=== PATIENT | male | born 1945 | race Two or more races ===

== ENCOUNTER 2023-12-27 20:15 | Emergency (ER) | payer MEDICARE, BC, SELFPAY ==
[2023-12-27 20:26] VITALS: PULSE 76; RESP 18; O2SAT 99; BMI 27.3
[2023-12-27 20:44] VITALS: BP 123/64; PULSE 72; RESP 17; TEMP 36.7; O2SAT 97
--- NOTE | 2023-12-27 21:00 | XR_ITS ---
Examination: CT brain head without contrast. 2-D sagittal coronal reconstructions Date and time of exam:December 27, 2023 2124 hrs. Indications: Patient fell today with injury to the head, head pain CTDI: vol (mGy):59.60 DLP: (mGycm):1406 Technique: Multiple CT axial sections of the brain have been obtained, 5 mm slice thickness. Contrast has not been administered. 2-D sagittal, coronal reconstructions have been obtained Low dose protocols were performed. One or more of the following dose reduction techniques were used; automated exposure control, adjustment of the mA and/or KV according to patient size, use of iterative reconstruction technique. Findings: No significant ventricular enlargement. Intra-axial or extra-axial hemorrhage density is not seen. No mass effect or midline shift Basal cisterns are not remarkable. Fourth ventricle is midline. Cranial vault intact. Impression: Negative for acute hemorrhage, mass effect or midline shift
--- NOTE | 2023-12-27 21:00 | XR_ITS ---
Examination: CT cervical spine without contrast 2-D sagittal reconstructions 2-D coronal reconstructions 3-D reconstructions. Exam date and time:December 27, 2023 2155 hrs. Indications: Patient fell today with injury to the neck, neck pain CTDI:vol (mGy) 13.86 DLP: (mGycm) 377 Technique: Multiple 2 mm axial sections of the cervical spine have been obtained. The coronal and sagittal reconstructions have been obtained. 3-D reconstructions have been obtained. Low dose protocols were performed. One or more of the following dose reduction techniques were used; automated exposure control, adjustment of the mA and/or KV according to patient size, use of iterative reconstruction technique. Findings: Axial sections demonstrate intact base of the skull. C1 exhibit satisfactory relationship to the odontoid. No acute cervical vertebral body fracture seen. Alignment posterior spinous processes satisfactory. Impression: No acute cervical fracture.
--- NOTE | 2023-12-27 21:00 | XR_ITS ---
Examination: CT thoracic spine, without contrast. 2-D sagittal reconstructions. 2-D coronal reconstructions. 3-D reconstructions. Date and time of exam:December 27, 2023 2127 hrs. Indications: Patient fell today with injury of the upper back, upper back pain CTDI: vol (mGy):38.75 DLP: (mGycm):1666 Technique: Multiple 1.25 mm axial sections of the thoracic spine without intravenous contrast have been obtained. 2-D sagittal and coronal reconstructions have been obtained. 3-D reconstructions have been obtained. Low dose protocols were performed. One or more of the following dose reduction techniques were used; automated exposure control, adjustment of the mA and/or KV according to patient size, use of iterative reconstruction technique. Findings: Mild kyphosis dorsal spine Moderate osteopenia No acute thoracic vertebral body compression fracture Impression: No acute thoracic fracture
--- NOTE | 2023-12-27 21:00 | XR_ITS ---
Examination: Ribs, right, with PA chest, 5 views Technique: Chest PA, RIBS AP, RPO, LPO, AP coned lower ribs 5 views Exam date and time: December 27, 2023 at 2104 hrs. Indications: Injury to the right chest today, right rib pain Findings: Normal heart size No pneumothorax The films are underpenetrated No acute rib fractures Impression: No pneumothorax pulmonary contusion or hemothorax No acute rib fractures
--- NOTE | 2023-12-27 21:01 | XR_ITS ---
Examination: CT lumbar spine, without contrast. 2-D sagittal reconstructions. 2-D coronal reconstructions. 3-D reconstructions. Date and time of exam:December 27, 2023 at 2130 hrs. Indications: Patient fell today with injury to lower back, lower back pain CTDI: vol (mGy):43.85 DLP: (mGycm):1666 Technique: Multiple 1.25 mm axial sections of the lumbar spine without intravenous contrast have been obtained. 2-D sagittal and coronal reconstructions have been obtained. 3-D reconstructions have been obtained. Low dose protocols were performed. One or more of the following dose reduction techniques were used; automated exposure control, adjustment of the mA and/or KV according to patient size, use of iterative reconstruction technique. Findings: Adequate alignment lumbar vertebral bodies on the lateral view No lumbar vertebral body compression fracture Advanced disc narrowing L5-S1 No spondylolisthesis Partial visualization subcentimeter bilateral renal calculi and gallstones AP prostate dimension 4.5 cm Impression: No acute lumbar fracture Partial visualization renal calculi Cholelithiasis
--- NOTE | 2023-12-27 21:01 | PD.EDRME ---
Rapid Medical Screening Exam RME Arrival date/time: 12/27/23 20:15 78 year old male present to ED for c/o head/back injury today I have greeted and performed a focused initial assessment of this patient. A comprehensive ED assessment and evaluation of the patient, analysis of all test results, and completion of the medical decision making process will be conducted by additional ED providers. Chief Complaint: Fall Time Seen by Provider: 12/27/23 20:55 Vital signs: Vital Signs Temperature 98.1 F 12/27/23 20:44 Pulse Rate 72 12/27/23 20:44 Respiratory Rate 17 12/27/23 20:44 Blood Pressure 123/64 12/27/23 20:44 Pulse Oximetry (%) 97 12/27/23 20:44 Oxygen Delivery Method Room Air 12/27/23 20:44
--- NOTE | 2023-12-27 22:28 | PD.EDFALL ---
ED Fall Injury RME/HPI General Chief Complaint: Fall Stated Complaint: FALL Time Seen by Provider: 12/27/23 20:55 Arrival date/time: 12/27/23 20:15 78 year old male present to emergency room with c/o of GLF today. denies blood thinner uses. LOCATION: scalp, back SEVERITY: Symptoms are described as being severe with limitations on activities of daily living QUALITY: Symptoms are described as being dull or achy CONTEXT: GLF today DURATION/TIMING: The symptoms started approximately [employer] SYMPTOMS: The patient is unable to identify any other associated symptoms. MODIFYING FACTORS: The patient is unable to identify any alleviating or aggravating symptoms. PERTINENT ROS: No associated syncope or presyncope, not on anticoagulant use, no associated focal neurological deficits, denies associated neck pain, no recent fevers, no unexplained rashes, no recent foreign travel, immunized, no unexplained nausea or vomiting. REVIEW OF SYSTEMS: See History of Present Illness - with the exception of those mentioned in the history of present illness, all other systems reviewed and reported as negative GENERAL: In general the patient is awake, interactive, in an emergency department gurney. HEAD/EYES/EARS/NOSE/THROAT: + scalp hematoma noted no bleeding , mucus membranes are moist, anicteric, palpebral conjunctiva is pink, trachea is midline. CARDIOVASCULAR: regular rate and regular rhythm, no murmurs, heart sounds are not distant, strong pulses in all four extremities that are equal and symmetric bilateral upper and lower extremities, normal capillary refill. CHEST/PULMONARY: normal chest rise and fall, good air movement, clear to auscultation bilaterally, normal inspiratory to expiratory ratios without evidence of respiratory distress. NECK: No midline/Paraspinal tenderness, no step off ROM/Strenght intact No Kernig and bruzinski sign. No trauma ABDOMEN: soft, not tender, no masses appreciated BACK:+ rib tenderness, no brusie. normal range of motion without pain. NEUROLOGICAL: cranio-facial features are symmetric, moves all four extremities equally without obvious limitations or weakness. EXTREMITY: no tenderness to palpation over the long bones or large joints of the bilateral upper and lower extremities, no joint swelling, no joint erythema, no signs of trauma, no unilateral leg swelling and no peripheral edema. SKIN: warm, dry, well-perfused, no jaundice, no rash, no telangiectasias or petechia. PSYCH: calm, cooperative, no evidence of psychosis or agitation RME / HPI RME / HPI Narrative: 12/27/23 20:15 78 year old male present to ED for c/o head/back injury today I have greeted and performed a focused initial assessment of this patient. A comprehensive ED assessment and evaluation of the patient, analysis of all test results, and completion of the medical decision making process will be conducted by additional ED providers. Related Data Allergies Allergy/AdvReac Type Severity Reaction Status Date / Time NKA* Allergy Uncoded 12/27/23 20:29 Course Course Course Narrative: This? presents with head trauma after a mechanical GLF. DDX includes MSK trauma, facial fractures, ICH or traumatic SAH, C-spine injury. Doubt other extracranial causes of injury. Considered nonmechanical causes of fall such as syncope, primary cardiopulmonary etiologies such as ACS/PE, but think these are unlikely. Will get head/neck ,lumbar/thoradic, rib xray, CT, pain control, , reassess, discharge Quality Measures none Orders Category Date Time Status CT cervical spine wo con Stat Exams 12/27/23 21:[address] head/brain wo con Stat Exams 12/27/23 21:[address] lumbar spine wo con Stat Exams 12/27/23 21:[address] thoracic spine wo con Stat Exams 12/27/23 21:00 Completed XR ribs RT min 3V w CXR1V Stat Exams 12/27/23 21:00 Completed Vital Signs Vital signs: Vital Signs Temperature 98.1 F 12/27/23 20:44 Pulse Rate 72 12/27/23 20:44 Respiratory Rate 17 12/27/23 20:44 Blood Pressure 123/64 12/27/23 20:44 Pulse Oximetry (%) 97 12/27/23 20:44 Oxygen Delivery Method Room Air 12/27/23 20:44 Fall Patient data External records reviewed:: None Clinical information provided by:: patient and spouse Social determinants that could affect healthcare access:: none Patient has the following chronic illnesses:: none How is presenting disease/condition affected by chronic disease/condition?: no chronic disease Evaluation data The following diagnostics were reviewed and interpreted by me:: radiology exam(s) Lab and/or radiology exams considered but not ordered:: none Interpretation Summary: ct head/neck, lumbar, thoracic: no acute findings rib xray NO acute findings Medications / Prescriptions Medications or Prescriptions considered but not ordered:: none Medication administrations:: none Consultations Consultation(s) initiated? (list below): No Diagnosis Fall Differential Diagnosis: compression fracture and other (head injury, head bleed, rib/back contusion/fracture ) Most likely diagnosis given after review of the tests above:: head injury, back contusion Admission Indicated Admission indicated?: not indicated Admission Request Was there a request for admission?: No Disposition Plan Disposition Plan: Discharge Discharge Attestation Discharge Attestation: The patient and all family members were given an opportunity to ask questions and understood the discharge instructions. Discharge instructions specifically effects, indications for sooner follow up or return to the emergency department, and the expected course of current diagnosis. Patient condition: Stable Discharge Plan Plan Patient Disposition: HOME (Self Care) Health Concerns: Follow with PMD as directed Take tylenol or motrin as need Return to ED if sx worsen Prescriptions/Referrals Referrals: No Primary/Family,Physician [Primary Care Provider] - In 1 week Problem List Clinical Impression: Head injury, Back contusion Patient/Caregiver Discharge Instructions Education Materials: ED Head Injury (Adult), ED Contusion, Rib Print Language: Somali Stand Alone Forms: [facility] Award Info., Patient Portal Info Letter Attestation Attestation The patient was seen by the midlevel practitioner. I, the co-signing physician, was present during the entire ER visit. While I did not physically examine the patient, I was available for consultation as needed.
== END 2023-12-27 23:03 | disposition home or self-care (01) ==
PROVIDERS: Emergency Provider Emergency Medicine
DX: S00.03XA Contusion of scalp, initial encounter (principal); S20.229A Contusion of unspecified back wall of thorax, initial encounter; S19.9XXA Unspecified injury of neck, initial encounter; W18.30XA Fall on same level, unspecified, initial encounter; S39.92XA Unspecified injury of lower back, initial encounter
CPT/HCPCS: 70450; 71101; 72125; 72128; 72131; 99284